=== PATIENT | male | born 1970 | race Caucasian/White ===

== ENCOUNTER 2022-08-05 08:03 | Outpatient (REF) | payer BC, SELFPAY ==
[2022-08-05 11:30] LABS: MANUAL DIFF FLAG NO
[2022-08-05 11:31] LABS: Basophils Percent Auto 0.5 % (0-2); Eosinophils Absolute Auto 0.1 X10*3/uL (0.0-0.4); Eosinophils Percent Auto 1.9 % (0-4); Hematocrit 44.8 % (42.0-52.0); Hemoglobin 15.1 g/dl (14.0-18.0); Imm Gran Abs Auto 0.02 X10*3/uL (0.00-0.03); Imm Gran Pct Auto 0.3 % (0.0-0.4); Lymphocytes Absolute Auto 2.6 X10*3/uL (1.2-4.9); Lymphocytes Percent Auto 34.6 % (20-40); Mean Corpuscular HGB Conc 33.7 g/dl (31.0-36.0); Mean Corpuscular Hemoglobin 28.2 pg (27.0-33.0); Mean Corpuscular Volume 83.6 fL (80.0-98.0); Mean Platelet Volume 9.3 fL (9.4-12.4); Monocytes Absolute Auto 0.7 X10*3/uL (0.1-1.2); Neutrophils Percent Auto 53.7 % (45-73); Platelet Count 165 X10*3/uL (160-400); Red Blood Count 5.36 X10*6/uL (4.60-5.80); Red Cell Distribution Width 13.2 % (11.0-16.0); White Blood Count 7.5 X10*3/uL (4.8-10.8)
[2022-08-05 13:00] LABS: Alanine Aminotransferase 33 U/L (0-40); Albumin Level 3.9 g/dL (3.5-5.0); Alkaline Phosphatase 59 U/L (39-117); Anion Gap 10 (12-20); Aspartate Amino Transferase 23 U/L (5-37); Bilirubin Total 1.3 mg/dL (0.0-1.0); Blood Urea Nitrogen 19 mg/dL (9-16); Calcium 8.9 mg/dL (8.4-10.2); Carbon Dioxide 28 mmol/L (22-29); Chloride 106 mmol/L (96-108); Cholesterol 196 mg/dL; Estimated Glomerular Filt Rate > 60; Glucose Random 82 mg/dL (60-115); HDL Cholesterol 51 mg/dL; LDL Cholesterol Calculated 130 mg/dl; Potassium 4.7 mmol/L (3.3-5.1); Sodium 139 mmol/L (135-145); Total Protein 6.3 g/dL (6.5-8.0); Triglycerides 79 mg/dL
[2022-08-05 13:05] LABS: Prostate Specific Antigen 0.85 ng/mL (<0.05-4.0); Thyroid Stimulating Hormone 3.87 uIU/mL (0.32-4.0); Vitamin D 25-OH Total 23.2 ng/mL (>30)
[2022-08-13 11:59] LABS: Testosterone, Total 438 ng/dL (250-1100)
== END 2022-08-05 08:04 | disposition home or self-care (01) ==
LOC: HO.MANLDS 08:03
PROVIDERS: Visit Provider Internal Medicine
DX: Z00.00 Encounter for general adult medical examination without abnormal findings (principal); Z12.5 Encounter for screening for malignant neoplasm of prostate; R53.83 Other fatigue
CPT/HCPCS: 36415; 80053; 80061; 82306; 84153; 84403; 84443; 85025

== ENCOUNTER 2023-08-30 08:08 | Outpatient (REF) | payer BC, SELFPAY ==
[2023-08-30 12:58] LABS: MANUAL DIFF FLAG NO
[2023-08-30 13:05] LABS: Basophils Absolute Auto 0.1 X10*3/uL (0.0-0.2); Basophils Percent Auto 0.7 % (0-2); Eosinophils Absolute Auto 0.1 X10*3/uL (0.0-0.4); Eosinophils Percent Auto 1.5 % (0-4); Hematocrit 45.1 % (42.0-52.0); Hemoglobin 15.2 g/dl (14.0-18.0); Imm Gran Abs Auto 0.03 X10*3/uL (0.00-0.03); Imm Gran Pct Auto 0.4 % (0.0-0.4); Lymphocytes Absolute Auto 2.2 X10*3/uL (1.2-4.9); Lymphocytes Percent Auto 30.3 % (20-40); Mean Corpuscular HGB Conc 33.7 g/dl (31.0-36.0); Mean Corpuscular Hemoglobin 28.7 pg (27.0-33.0); Mean Corpuscular Volume 85.3 fL (80.0-98.0); Mean Platelet Volume 9.9 fL (9.4-12.4); Monocytes Absolute Auto 0.7 X10*3/uL (0.1-1.2); Monocytes Percent Auto 9.2 % (2-11); Neutrophils Absolute Auto 4.1 x10*3/uL (2.0-8.3); Neutrophils Percent Auto 57.9 % (45-73); Platelet Count 213 X10*3/uL (160-400); Red Blood Count 5.29 X10*6/uL (4.60-5.80); Red Cell Distribution Width 13.3 % (11.0-16.0); White Blood Count 7.1 X10*3/uL (4.8-10.8)
[2023-08-30 13:38] LABS: Alanine Aminotransferase 28 U/L (0-40); Alkaline Phosphatase 60 U/L (39-117); Anion Gap 13 (12-20); Aspartate Amino Transferase 22 U/L (5-37); Bilirubin Total 0.7 mg/dL (0.0-1.0); Blood Urea Nitrogen 16 mg/dL (9-16); C Reactive Protein 0.45 mg/dL (< or = 0.50); Calcium 9.1 mg/dL (8.4-10.2); Carbon Dioxide 26 mmol/L (22-29); Chloride 106 mmol/L (96-108); Cholesterol 179 mg/dL (<200); Estimated Glomerular Filt Rate > 60; Glucose Random 77 mg/dL (60-115); HDL Cholesterol 55 mg/dL (>40); LDL Cholesterol Calculated 110 mg/dL (<100); Potassium 4.5 mmol/L (3.3-5.1); Sodium 140 mmol/L (135-145); Total Protein 6.9 g/dL (6.5-8.0); Triglycerides 72 mg/dL (<150)
[2023-08-30 13:51] LABS: Prostate Specific Antigen 0.88 ng/mL (<0.05-4.0)
== END 2023-08-30 08:09 | disposition home or self-care (01) ==
LOC: HO.MANLDS 08:08
PROVIDERS: Visit Provider Internal Medicine
DX: Z12.5 Encounter for screening for malignant neoplasm of prostate (principal); Z13.6 Encounter for screening for cardiovascular disorders; Z82.49 Family history of ischemic heart disease and other diseases of the circulatory system
CPT/HCPCS: 36415; 80053; 80061; 84153; 85025; 86140

== ENCOUNTER 2025-01-12 16:54 | Emergency (ER) | payer OTHER, BC, SELFPAY ==
--- NOTE | 2025-01-12 16:56 | ED_ITS ---
HPI - General Adult General Chief complaint: Wound/Laceration Stated complaint: right hand, fifth digit laceration Time Seen by Provider: 01/12/25 18:10 Source: patient, RN notes reviewed and old records reviewed Mode of arrival: ambulatory Limitations: no limitations History of Present Illness ED Provider: Naif [facility] narrative: Patient is a 54-year-old right-hand dominant male presenting to the emergency department with lacerations to right 4th and 5th fingers sustained while he was attempting to catch the watermelon that he was cutting from rolling away while the knife was in the watermelon. He denies any decreased range of motion. Complains of some numbness to 5th finger. Unsure last Tdap. Denies any other injuries. MD complaint: Finger lacerations Related Data Allergies Allergy/AdvReac Type Severity Reaction Status Date / Time No Known Allergies Allergy Verified 01/12/25 17:15 Review of Systems 2 Review of Systems: As per HPI. Yes all other systems are reviewed and are negative Constitutional: Constitutional: Reports as per HPI Physical Exam ED Vital Signs: Vital Signs - 24 hr 01/12/25 17:14 Temperature 98 F Pulse Rate 66 Respiratory Rate 18 Blood Pressure 133/74 Pulse Oximetry 98 Oxygen Delivery Method Room Air BMI result Body Mass Index 30.5 Vital signs have been reviewed and appear to be correct. Blood pressure normal. Heart rate normal. Respiratory rate normal. Temperature normal. Oxygen saturation normal. Const General: cooperative, healthy appearing and no acute distress Orientation/consciousness: oriented to person, oriented to place, oriented to time and patient oriented x3 Limitations: no limitations HENMT Head: Yes normocephalic and Yes atraumatic Ears: external ears normal General nose exam: Normal external nose present Face and sinus: Yes face symmetric Mouth: oropharynx normal and moist mucous membranes Throat: Yes uvula midline Eyes Pupils: Equal, round and reactive pupils present Neck Neck: Yes normal visual inspection and Yes supple Resp Effort & Inspection: normal respiratory effort and able to speak in complete sentences Auscultation: clear to auscultation bilaterally Cardio Rate: regular rate Rhythm: regular rhythm Heart sounds: S1 normal heart sound present and S2 normal heart sound present GI Palpation (GI): Soft to palpation and nontender Auscultation: normoactive bowel sounds General: Yes no CVA tenderness Back/Spine/Pelvis Back: no CVA tenderness Skin General skin exam: elasticity normal and turgor normal Neuro General: oriented to person, oriented to place, oriented to time, patient oriented x3, moves all extremities, no focal motor deficits and CN's II-XI intact bilaterally Cranial nerves: Yes Equal, round and reactive pupils present Cognition (Neuro): normal cognition Extrem General: Yes full ROM, Yes no pedal edema and Yes no calf tenderness Right upper extremity: Extremity exam: right hand Details: neurosensory exam normal (decreased sensation to 5th finger) and laceration (liner lacerations to 4th and 5th fingers) 5th digit palmar aspect proximal Details: linear Hand/finger images: 2 1. 1.5 cm lac 2. 1cm lac Psych Mental Status: mental status grossly normal Affect: normal affect Thought process: Normal thought process present Course Course Course Narrative: This is an RME performed by Cara Alcantar CNP: Additional HPI, ROS, PE not included below will be deferred to primary provider. Patient is a 54-year-old male who presents emergency department for evaluation of a laceration to the right hand 4th and 5th digit, palpar aspect, adccidental from a kitchen knofe while cutting a melon. Unaware of date of last tetanus vaccination Plan: Placed in waiting room pending bed availability for wound repair, will require suture Procedures Laceration Laceration 1: Site: hand (4th finger) Side (If applicable): right Size (cm): 1 Description: linear Depth: simple, single layer Local Anesthetic: lidocaine 1% Amount of anesthesia used (mL): 2 Pre-repair: wound explored, irrigated extensively and deep structures intact Skin layer closed with: other (prolene) Size (cm): 5-0 Number of sutures: 4 Technique: simple, interrupted Laceration 2: Site: hand (5th finger) Side (If applicable): right Size (cm): 1.5 Description: linear Depth: simple, single layer Local Anesthetic: lidocaine 1% Amount of anesthesia used (mL): 3 Pre-repair: wound explored, irrigated extensively and deep structures intact Skin layer closed with: other (prolene) Size (cm): 5-0 Number of sutures: 6 Technique: simple, interrupted Medical Decision Making Medical Decision Making MDM Narrative: Patient is a 54-year-old right-hand dominant male presenting to the emergency department with lacerations to right 4th and 5th fingers sustained while he was attempting to catch the watermelon that he was cutting from rolling away while the knife was in the watermelon. On exam patient is awake, A+Ox3, VS WNL, afebrile, normal neurological exam without focal deficits, physical exam findings as above. Given reported symptoms and physical exam findings, initial differential includes but is not limited to finger lacerations. No evidence of tendon injury on exam. Decreased sensation to 5th finger. Lacerations repaired as procedure note, patient tolerated well, no complications. Tdap updated today's visit. Wound care instructions and return precautions discussed with patient at bedside. Will give referral to Dr. Pulido if decreased sensation to 5th finger persist. Patient verbalized understanding of and agreement with plan. Differential Diagnosis Differential Diagnoses: The differential diagnosis associated with the presentation includes As per [facility] Admission/Observation Consideration of admission/observation: Escalation of care including admission/observation considered Patient would have been admitted to the hospital had their clinical presentation warranted hospital admission. External Record Review External record reviewed: Inpatient record, Office record and Outpatient record Discharge Plan Discharge Clinical Impression: Laceration of finger of right hand Qualifiers: Encounter type: initial encounter Finger: ring finger Damage to nail status: w ithout damage Foreign body presence: without foreign body Qualified Code(s): S 61.214A - Laceration without foreign body of right ring finger without damage to nail, initial encounter Patient Disposition: Home, Self-Care Instructions: Finger Laceration (ED), Laceration (DC), Care For Your Stitches (DC), Stitches Removal (ED) Additional Instructions: You have been evaluated in the emergency department today for a laceration to your fingers. Your lacerations were repaired in the emergency department with 10 total sutures. Please keep the area surrounding the lacerations clean and dry and keep dressing in place for the next 24 hours. After that please change the dressing and assess the wound daily. Do not submerge the wounds in water until the stitches have been removed and the wounds have fully healed (no washing dishes, swimming, hot tubs, etc. and ESPECIALLY no outdoor water). Keep the area out of direct sunlight for the next 6 months to help prevent scarring. You should have the sutures removed in 7-10 days. If you develop fever, redness, swelling at the site of your laceration, or thick yellow drainage please come back to the ER for a wound check. Your Tdap (tetanus) vaccine was updated at today's visit. Follow up with Dr. Pulido if the numbness to your 5th finger persists. Referrals: Yamileth Pulido MD [Physician, Hand Surgery] Referral Note: 4th and 5th finger lacerations Print Language: Indonesian
[2025-01-12 17:14] VITALS: BP 133/74; PULSE 66; RESP 18; TEMP 36.6; O2SAT 98; BMI 30.5
[2025-01-12] MEDS: Lidocaine HCl 1 % MPF 5 ML VIAL INFILTRATI (18:52)
[2025-01-12] MEDS: Diphth,Pertus(ACell),Tet Adult 0.5 ML SYRINGE IM (18:52)
[2025-01-12 18:59] VITALS: BP 133/74; PULSE 66; RESP 18; TEMP 36.6; O2SAT 98
== END 2025-01-12 18:59 | disposition home or self-care (01) ==
PROVIDERS: Emergency Provider Emergency Medicine; PCP Internal Medicine
DX: S61.214A Laceration without foreign body of right ring finger without damage to nail, initial encounter (principal); S61.218A Laceration without foreign body of other finger without damage to nail, initial encounter; W26.0XXA Contact with knife, initial encounter; Y93.9 Activity, unspecified; Y92.9 Unspecified place or not applicable; Y99.9 Unspecified external cause status
CPT/HCPCS: 12001; 90471; 90715; 99282; 99284; J2003

== ENCOUNTER 2025-01-17 08:48 | Outpatient (REF) | payer OTHER, BC, SELFPAY ==
--- OUTSIDE RECORDS SUMMARY | 2021-01-14 20:00 | XMS_ITS | Continuity of Care Document ---
Author Organization [facility] Address [address] [place] [phone] Phone Care Team Providers Care Cyber Security Systems Engineer Name Role Phone Liebetreu OD, Kiko Unavailable Unavailable Allergies, Adverse Reactions, Alerts Substance Reaction Status Criticality No Known Allergies Active No Inform ation Advance Directives Directive Yes / No Effective Date File Name No Information Encounters Encounter Description Practice Location Reason(s) For Visit Diagnoses Date Provider Providers Copied on Encounter [facility], [address] [place] [address], [id number] , [place] tel: [phone] [place] [address] [facility] Ocular hypertension, bilateral 1 Liebetreu Kiko. [address] [place], [place], [address], [place]. tel:[phone] [facility], [address] [place] [address], [id number] , [place] tel: [phone] [facility] Location Sixth [abducent] nerve palsy, right eyeDiplopiaOcular pain, right eyeSixth [abducent] nerve palsy, left eyeOcular hypertension, bilateralDrusen of optic disc, bilateralHypertensiv e retinopathy, bilateralHeadache, unspecifiedType 2 diabetes mellitus without complications 1 [facility]. [address] [place] [address], [id number], [place]. tel:[phone] [facility], [address] [place] [address], [id number] , [place] tel: [phone] [facility] Location Drusen of optic disc, bilateralType 2 diabetes mellitus without complicationsOcular pain, right eyeHypertensive retinopathy, bilateralSixth [abducent] nerve palsy, right eyeHeadache, unspecifiedDiplopia 1 [facility]. [address] [place] [address], [facility], . tel:[phone] [facility], [address] [place] [address], [id number] , tel: [phone] [facility] Location Type 2 diabetes mellitus without complicationsType 2 diabetes mellitus with mild nonproliferative diabetic retinopathy without macular edema, bilateralDiplopiaDru sen of optic disc, bilateralHypertensiv e retinopathy, bilateralOcular pain, right eyeHeadache, unspecifiedSixth [abducent] nerve palsy, right eye 1 [facility]. [address] [place] [address], [facility], . tel:[phone] [facility], [address] [place] [address], [id number] , tel: [phone] [facility] Location Type 2 diabetes mellitus with mild nonproliferative diabetic retinopathy without macular edema, bilateralSixth [abducent] nerve palsy, right eye Dec- 0 [facility]. [address] [place] [address], [facility], . tel:[phone] [facility], [address] [place] [address], [id number] , tel: [phone] [facility] Type 2 diabetes mellitus with mild nonproliferative diabetic retinopathy without macular edema, bilateral Oct-1 0-201 9 [facility]. [address] [place] [address], [facility], . tel:[phone] Family History Family Member Type Diagnosis Age At Onset Close relative Problem (finding) No Significant Family History Payers Payer name Insurance type Covered green party ID Authoriza tion(s) No Information Social History Type Description Quantity Date Captured Comments Alcohol Use Details Unknown Caffeine Use Details Unknown Tobacco Use Status Former smoker Smoking Status Former smoker Non-Smoking Tobacco Use Details : No Details Available : No Details Available Sex Male Chief Complaint And Reason For Visit No Information Reason For Referral Reason For Referral No Information History Of Present Illness Encounter Date Complaint History Of Prese nt Illness No Information Functional Status Date Functional Assessmen t No Information Instructions Date Instruction Additional Infor rosalia Impression/Plan Related to [place] revealed increased intraocular pressure. Impression/Plan Related to Diagn osis Description: Bilateral hypertensive retinopathy \nDiagnosis Code: 362.11 Impression/Plan Related to Diagn osis Description: Drusen of optic disc, bilateral \nDiagnosis Code: 377.21 Impression/Plan Related to Diagn osis Description: Controlled diabetes mellitus type II without complication \nDiagnosis Code: 250.00 Impression/Plan Related to Diagn osis Description: Headache, unspecified \nDiagnosis Code: 784.0 Impression/Plan Related to Diagn osis Description: Ocular pain, right eye \nDiagnosis Code: 379.91 Impression/Plan Related to Diagn osis Description: Ocular hypertension, bilateral \nDiagnosis Code: 365.04 Impression/Plan Related to Diagn osis Description: Sixth nerve palsy of left eye \nDiagnosis Code: 378.54 Impression/Plan Related to Diagn osis Description: Sixth nerve palsy of right eye \nDiagnosis Code: 378.54 Impression/Plan Related to Diagn osis Description: Diplopia \nDiagnosis Code: 368.2 Impression/Plan Related to Diagn osis Description: Bilateral hypertensive retinopathy \nDiagnosis Code: 362.11 Impression/Plan Related to Diagn osis Description: Drusen of optic disc, bilateral \nDiagnosis Code: 377.21 Impression/Plan Related to Diagn osis Description: Controlled diabetes mellitus type II without complication \nDiagnosis Code: 250.00 Impression/Plan Related to Diagn osis Description: Headache, unspecified \nDiagnosis Code: 784.0 Impression/Plan Related to Diagn osis Description: Ocular pain, right eye \nDiagnosis Code: 379.91 Impression/Plan Related to Diagn osis Description: Sixth nerve palsy of right eye \nDiagnosis Code: 378.54 Impression/Plan Related to Diagn osis Description: Diplopia \nDiagnosis Code: 368.2 Impression/Plan Related to Diagn osis Description: Bilateral hypertensive retinopathy \nDiagnosis Code: 362.11 Impression/Plan Related to Diagn osis Description: Drusen of optic disc, bilateral \nDiagnosis Code: 377.21 Impression/Plan Related to Diagn osis Description: Controlled diabetes mellitus type II without complication \nDiagnosis Code: 250.00 Impression/Plan Related to Diagn osis Description: Headache, unspecified \nDiagnosis Code: 784.0 Impression/Plan Related to Diagn osis Description: Ocular pain, right eye \nDiagnosis Code: 379.91 Impression/Plan Related to Diagn osis Description: Controlled diabetes mellitus with mild nonproliferative retinopathy of both eyes, without long-term current use of insulin \nDiagnosis Code: 250.50 Impression/Plan Related to Diagn osis Description: Diplopia \nDiagnosis Code: 368.2 Impression/Plan Related to Diagn osis Description: Palsy of right sixth cranial nerve on examination \nDiagnosis Code: 378.54 Impression/Plan Related to Diagn osis Description: Controlled diabetes mellitus with mild nonproliferative retinopathy of both eyes, without long-term current use of insulin \nDiagnosis Code: 250.50 Impression/Plan Related to Diagn osis Description: Palsy of right sixth cranial nerve on examination \nDiagnosis Code: 378.54 Impression/Plan Related to Diagn osis Description: Controlled diabetes mellitus with mild nonproliferative retinopathy of both eyes, without long-term current use of insulin \nDiagnosis Code: 250.50 Assessments Type Assessment Date No Information Patient Care Teams Name Effective Dates (start - stop) Status Members No Information
--- NOTE | ~2025-01-17 | XR_ITS ---
EXAMINATION: XR HAND, RIGHT CLINICAL INFORMATION: M79.641 - Pain in right hand COMPARISON: None available. TECHNIQUE: PA, lateral, and oblique views of the right hand. FINDINGS: No fracture, dislocation, or suspicious bone lesion. No periarticular osteopenia or erosions. Joint spaces are preserved. There is normal alignment. There are normal soft tissues. XR/XR hand RT min 3V IMPRESSION: Normal right hand. Electronically signed by: Dallin Gonzalez MD 01/17/2025 02:06 PM EDT
--- OUTSIDE RECORDS SUMMARY | 2025-01-17 09:01 | XMS_ITS | Continuity of Care Document ---
Author Name [facility] Organization [facility] Care Team Providers Care Handbag Frames Inspector Name Role Phone [facility] Unavailable Unavailable Problems Combined list of problems from Department of Defense and Veterans Affairs facilities. It does not include entries that were removed or entered in error. Problem Status Onset Date Problem Type Date of Resolution Comme nts Source visit for: services physical Inactive 03/18/2012 Condition DoD Immunizations Combined list of available immunizations from the Department of Defense and Veterans Affairs facilities. Immunization Series Date Given Administered By Site Reaction Lot Number CVX Code Drug Care Analyst Status Comments Source influenza virus vaccine, inactivated 2021 [id number] Seqirus complet ed influenza virus vaccine, inactivat ed 06/20/21 Given Ambulat ory Pharmac y COVID Vaccine Moderna 2020 [id number] complet ed COVID Vaccine Moderna 10/07/20 Given Ambulat ory Pharmac y COVID Vaccine Moderna 2020 [id number] 207 complet ed COVID Vaccine Moderna 09/09/20 Given Ambulat ory Pharmac y influenza, injectable, quadrivalent- pf 2019 [id number] 150 Seqirus complet ed influenza , injectabl e, quadrival ent-pf 04/25/20 Given Ambulat ory Pharmac y influenza, injectable, quadrivalent- pf 2018 [id number] 150 Seqirus complet ed influenza , injectabl e, quadrival ent-pf 03/17/19 Given Ambulat ory Pharmac y influenza, injectable, quadrivalent 2017 [id number] Seqirus complet ed influenza , injectabl e, quadrival ent 05/12/18 Given Ambulat ory Pharmac y influenza, injectable, quadrivalent, contains preservative 15 2017 [id number] Seqirus (SEQ) comple t ed influenza , injectabl e, quadrival ent, contains preservat stephon DoD measles/mumps /rubella virus vaccine 2017 [id number] Merck & Company Inc complet ed measles/m umps/rube lla virus vaccine 6/2/18 Given Ambulat ory Pharmac y measles, mumps and rubella virus vaccine 1 2017 [id number] Merck (MSD) complet ed measles, mumps and rubella virus vaccine DoD typhoid Vi capsular polysaccharid e vac 2017 [id number] sanofi pasteur complet ed typhoid Vi capsular polysacch aride vac 10/14/17 Given Ambulat ory Pharmac y measles/mumps /rubella virus vaccine 2017 [id number] Merck & [employer] Inc complet ed measles/m umps/rube lla virus vaccine 10/14/17 Given Ambulat ory Pharmac y measles, mumps and rubella virus vaccine 1 2017 [id number] 03 Merck (MSD) complet ed measles, mumps and rubella virus vaccine DoD typhoid Vi capsular polysaccharid e vaccine 5 2017 [id number] Sanofi Pasteur ([facility]) complet ed typhoid Vi capsular polysacch aride vaccine DoD measles virus vaccine 0 2017 05 () Not Given measles virus vaccine DoD rubella virus vaccine 0 2017 06 () Not Given rubella virus vaccine DoD varicella virus vaccine 0 2017 21 () Not Given varicella virus vaccine DoD Influenza, inj, MDCK, quadrivalent- pf 2016 [id number] Seqirus complet ed Influenza , inj, MDCK, quadrival ent-pf 05/13/17 Given Ambulat ory Pharmac y Influenza, injectable, Madin Gisela Canine Kidney, preservative free, quadrivalent 14 2016 [id number] 171 Seqirus (SEQ) comple t ed Influenza , injectabl e, Madin Gisela Canine Kidney, preservat stephon free, quadrival ent DoD tuberculin purified protein derivative 2016 [id number] [facility] complet ed tuberculi n purified protein derivativ e 08/13/16 Given Ambulat ory Pharmac y influenza, seasonal, injectable-pf 2016 [id number] 140 Seqirus complet ed influenza , seasonal, injectabl e-pf 08/13/16 Given Ambulat ory Pharmac y Influenza, seasonal, injectable, preservative free 13 2016 [id number] 140 Seqirus (SEQ) comple t ed Influenza , seasonal, injectabl e, preservat stephon free DoD typhoid Vi capsular polysaccharid e vac 2015 [id number] 101 sanofi pasteur complet ed typhoid Vi capsular polysacch aride vac 09/04/15 Given Ambulat ory Pharmac y typhoid Vi capsular polysaccharid e vaccine 4 2015 [id number] 101 Sanofi Pasteur ([facility]) complet ed typhoid Vi capsular polysacch aride vaccine DoD influenza, live, intranasal,qu adrivalent 2015 [id number] 149 Medimmune Inc comple t ed influenza , live, intranasa l,quadriv alent 06/20/15 Given Ambulat ory Pharmac y influenza, live, intranasal, quadrivalent 12 2015 [id number] 149 MedImmMediaWorks, Inc. (MED) complet ed influenza , live, intranasa l, quadrival ent DoD Influenza, injectable, MDCK-pf 2013 [id number] 153 Novartis Bannermantica ls complet ed Influenza , injectabl e, MDCK-pf 03/15/14 Given Ambulat ory Pharmac y hepatitis A adult vaccine 2013 [id number] GlaxoSmithKli ne complet ed hepatitis A adult vaccine 03/15/14 Given Ambulat ory Pharmac y hepatitis A vaccine, adult dosage 2 2013 [id number] AuroraeReplacementsine (SKB) complet ed hepatitis A vaccine, adult dosage DoD Influenza, injectable, Madin Dawn Canine Kidney, preservative free 11 2013 [id number] 153 Novartis Bannermantica l [place]. (NOV) complet ed Influenza , injectabl e, Madin Gisela Canine Kidney, preservat stephon free DoD influenza, seasonal, injectable 2012 [id number] 141 CSL Behring complet ed influenza , seasonal, injectabl e 04/14/13 Given Ambulat ory Pharmac y Influenza, seasonal, injectable 0 2012 [id number] [id number] 141 CSA vida é feita de [employer]. (CSL) complet ed Influenza , seasonal, injectabl e DoD yellow fever vaccine 2012 [id number] 37 sanofi pasteur complet ed yellow fever vaccine 07/22/12 Given Ambulat ory Pharmac y yellow fever vaccine 2 2012 [id number] 37 Sanofi Pasteur ([facility]) complet ed yellow fever vaccine DoD influenza, seasonal, injectable 2012 [id number] 1A 141 CSL Behring complet ed influenza , seasonal, injectabl e 06/23/12 Given Ambulat ory Pharmac y hepatitis B adult vaccine 2012 [id number] 43 GlaxoSmithKli ne complet ed hepatitis B adult vaccine 06/23/12 Given Ambulat ory Pharmac y hepatitis B vaccine, adult dosage 3 2012 [id number] 43 SmithKline (SKB) complet ed hepatitis B vaccine, adult dosage DoD Influenza, seasonal, injectable 9 2012 [id number] 141 CS Book[employer] Inc. (CSL) complet ed Influenza , seasonal, injectabl e DoD tetanus, diphtheria, acellular pertu is 2011 [id number] 115 sanofi pasteur complet ed tetanus, diphtheri a, acellular pertussis 01/02/12 Given Ambulat ory Pharmac y tetanus toxoid, reduced diphtheria toxoid, and acellular pertu is vaccine, adsorbed 0 2011 [id number] 115 Sanofi Pasteur ([facility]) complet ed tetanus toxoid, reduced diphtheri a toxoid, and acellular pertussis vaccine, adsorbed DoD hepatitis B adult vaccine 2011 [id number] [id number] 43 GlaxoSmithKli ne complet ed hepatitis B adult vaccine 10/16/11 Given Ambulat ory Pharmac y hepatitis B vaccine, adult dosage 2 2011 [id number] [id number] 43 SmithKline (SKB) complet ed hepatitis B vaccine, adult dosage DoD hepatitis B adult vaccine 2011 [id number] [id number] 43 GlaxoSmithKli ne complet ed hepatitis B adult vaccine 07/26/11 Given Ambulat ory Pharmac y anthrax vaccine 2011 [id number] 24 Emergent Biosolutions complet ed anthrax vaccine 07/26/11 Given Ambulat ory Pharmac y typhoid Vi capsular polysaccharid e vac 2011 [id number] 101 sanofi pasteur complet ed typhoid Vi capsular polysacch aride vac 07/26/11 Given Ambulat ory Pharmac y anthrax vaccine 5 2011 [id number] 24 Emergent [employer] ([facility]) complet ed anthrax vaccine DoD hepatitis B vaccine, adult dosage 0 2011 [id number] [id number] 43 SmithKline (SKB) complet ed hepatitis B vaccine, adult dosage DoD typhoid Vi capsular polysaccharid e vaccine 3 2011 [id number] 101 Sanofi Pasteur ([facility]) complet ed typhoid Vi capsular polysacch aride vaccine DoD influenza, seasonal, injectable 2010 [id number] 141 sanofi pasteur complet ed influenza , seasonal, injectabl e 05/15/11 Given Ambulat ory Pharmac y Influenza, seasonal, injectable 8 2010 [id number] 141 Sanofi Pasteur ([facility]) complet ed Influenza , seasonal, injectabl e DoD influenza virus vaccine,split 2010 [id number] 15 sanofi pasteur complet ed influenza virus vaccine,s plit 10/23/10 Given Ambulat ory Pharmac y influenza virus vaccine, split virus (incl. purified surface antigen)-reti red CODE 1 2010 [id number] 15 Sanofi Pasteur ([facility]) complet ed influenza virus vaccine, split virus (incl. purified surface antigen)- retired CODE DoD influenza virus vaccine,split 2009 [id number] 15 CSL Behring complet ed influenza virus vaccine,s plit 10/08/09 Given Ambulat ory Pharmac y influenza virus vaccine, split virus (incl. purified surface antigen)-reti red CODE 1 2009 [id number] 15 CSL PollitoIngles[employer] Inc. (CSL) complet ed influenza virus vaccine, split virus (incl. purified surface antigen)- retired CODE DoD Novel influenza-H1N 1-09, injectable 2009 [id number] 127 Novartis Pharmaceutica complet ed Novel influenza -H4N2-66, injectabl e 07/18/09 Given Ambulat ory Pharmac y Novel influenza-H1N 1-09, injectable 1 2009 [id number] 1 127 Novartis Pharmaceutica l [place]. (NOV) complet ed Novel influenza -S7H5-42, injectabl e DoD influenza virus vaccine,split 2007 [id number] 15 sanofi pasteur complet ed influenza virus vaccine,s plit 05/17/08 Given Ambulat ory Pharmac y influenza virus vaccine, split virus (incl. purified surface antigen)-reti red CODE 1 2007 [id number] 15 Sanofi Pasteur ([facility]) complet ed influenza virus vaccine, split virus (incl. purified surface antigen)- retired CODE DoD influenza virus vaccine,split 2005 [id number] 15 sanofi pasteur complet ed influenza virus vaccine,s plit 07/16/05 Given Ambulat ory Pharmac y influenza virus vaccine, split virus (incl. purified surface antigen)-reti red CODE 1 2005 [id number] 15 Sanofi Pasteur ([facility]) complet ed influenza virus vaccine, split virus (incl. purified surface antigen)- retired CODE DoD anthrax vaccine 2003 [id number] 24 Emergent Biosolutions complet ed anthrax vaccine 03/27/04 Given Ambulat ory Pharmac y anthrax vaccine 5 2003 [id number] 24 Emergent [facility] ([facility]) complet ed anthrax vaccine DoD tuberculin purified protein derivative 2003 [id number] 96 sanofi pasteur complet ed tuberculi n purified protein derivativ e 09/13/03 Given Ambulat ory Pharmac y influenza virus vaccine, whole virus 2003 [id number] 16 [employer] complet ed influenza virus vaccine, whole virus 09/13/03 Given Ambulat ory Pharmac y typhoid Vi capsular polysaccharid e vac 2003 [id number] 101 sanofi pasteur complet ed typhoid Vi capsular polysacch aride vac 09/13/03 Given Ambulat ory Pharmac y anthrax vaccine 2003 [id number] 24 Emergent [employer] complet ed anthrax vaccine 09/13/03 Given Ambulat ory Pharmac y influenza virus vaccine, whole virus 0 2003 [id number] 16 [facility] complet ed influenza virus vaccine, whole virus DoD anthrax vaccine 4 2003 [id number] Emergent [facility] ([facility]) complet ed anthrax vaccine DoD typhoid Vi capsular polysaccharid e vaccine 0 2003 [id number] 101 Sanofi Pasteur ([facility]) complet ed typhoid Vi capsular polysacch aride vaccine DoD vaccinia (smallpox) vaccine 2002 [id number] 75 [employer] complet ed vaccinia (smallpox ) vaccine 08/13/02 Given Ambulat ory Pharmac y vaccinia (smallpox) vaccine 0 2002 [id number] 75 [facility] complet ed vaccinia (smallpox ) vaccine DoD anthrax vaccine 2002 [id number] 24 Emergent [employer] complet ed anthrax vaccine 07/13/02 Given Ambulat ory Pharmac y anthrax vaccine 3 2002 [id number] 24 Emergent [employer] ([facility]) complet ed anthrax vaccine DoD yellow fever vaccine 2002 [id number] 37 sanofi pasteur complet ed yellow fever vaccine 06/22/02 Given Ambulat ory Pharmac y yellow fever vaccine 0 2002 [id number] 37 Sanofi Pasteur ([facility]) complet ed yellow fever vaccine DoD anthrax vaccine 2001 [id number] 24 [employer] complet ed anthrax vaccine 06/01/02 Given Ambulat ory Pharmac y anthrax vaccine 2 2001 [id number] 24 Emergent [employer] ([facility]) complet ed anthrax vaccine DoD anthrax vaccine 2001 [id number] 24 [employer] complet ed anthrax vaccine 05/18/02 Given Ambulat ory Pharmac y anthrax vaccine 1 2001 [id number] 24 [employer] ([facility]) complet ed anthrax vaccine DoD tuberculin purified protein derivative 2001 [id number] 96 sanofi pasteur complet ed tuberculi n purified protein derivativ e 04/12/02 Given Ambulat ory Pharmac y influenza virus vaccine, whole virus 2001 [id number] 16 sanofi pasteur complet ed influenza virus vaccine, whole virus 04/12/02 Given Ambulat ory Pharmac y influenza virus vaccine, whole virus 0 2001 [id number] 16 Sanofi Pasteur ([facility]) complet ed influenza virus vaccine, whole virus DoD hepatitis A adult vaccine 2001 [id number] Merck & Company Inc complet ed hepatitis A adult vaccine 02/02/02 Given Ambulat ory Pharmac y hepatitis A vaccine, adult dosage 2 2001 [id number] 52 Merck (MSD) complet ed hepatitis A vaccine, adult dosage DoD poliovirus vaccine, inactivated 2001 [id number] 10 sanofi pasteur complet ed polioviru s vaccine, inactivat ed 10/13/01 Given Ambulat ory Pharmac y poliovirus vaccine, inactivated 0 2001 [id number] 10 Sanofi Pasteur ([facility]MC) complet ed polioviru s vaccine, inactivat ed DoD tetanus-dipht h toxoids (Td) adult/adol 2001 [id number] 09 sanofi pasteur complet ed tetanus-d iphth toxoids (Td) adult/ado l 08/18/01 Given Ambulat ory Pharmac y typhoid Vi capsular polysaccharid e vac 2001 [id number] 101 sanofi pasteur complet ed typhoid Vi capsular polysacch aride vac 08/18/01 Given Ambulat ory Pharmac y hepatitis A adult vaccine 2001 [id number] 52 Merck & Company Inc complet ed hepatitis A adult vaccine 08/18/01 Given Ambulat ory Pharmac y tetanus and diphtheria toxoids, adsorbed, preservative free, for adult use (2 Lf of tetanus toxoid and 2 Lf of diphtheria toxoid) 0 2001 [id number] 09 Sanofi Pasteur (PMC) complet ed tetanus and diphtheri a toxoids, adsorbed, preservat stephon free, for adult use (2 Lf of tetanus toxoid and 2 Lf of diphtheri a toxoid) DoD hepatitis A vaccine, adult dosage 1 2001 [id number] 52 Merck (MSD) complet ed hepatitis A vaccine, adult dosage DoD typhoid Vi capsular polysaccharid e vaccine 0 2001 [id number] 101 Sanofi Pasteur ([facility]) complet ed typhoid Vi capsular polysacch aride vaccine DoD tuberculin purified protein derivative 2000 [id number] 96 sanofi pasteur complet ed tuberculi n purified protein derivativ e 04/14/01 Given Ambulat ory Pharmac y influenza virus vaccine, whole virus 2000 [id number] 16 sanofi pasteur complet ed influenza virus vaccine, whole virus 04/14/01 Given Ambulat ory Pharmac y influenza virus vaccine, whole virus 0 2000 [id number] 16 Sanofi Pasteur ([facility]) complet ed influenza virus vaccine, whole virus DoD measles, mumps and rubella virus vaccine 0 1990 03 () Not Given measles, mumps and rubella virus vaccine DoD Results Combined list of recent chemistry, hematology and other laboratory results from Department of Defense and Veterans Affairs, ranging from 15 months to all on record, depending upon the facility. Order Name Results Value Reference Range Date Interpretation Specimen Comments Source Infectiou s Disease HIV-1/O/2 Non-Reac tive 1 (08/25/23 1:10 PM) 08/24 N Interpretiv e Data: INTERPRETAT ION: This method is a screening procedure for the detection of HIV p24 Antigen and Antibodies to HIV-1, including Group O, and/or HIV-2. NON-REACTIV E: HIV-1 antigen and HIV-1 / HIV-2 antibodies were not detected. No laboratory evidence of HIV infection. A negative test result does not exclude the possibility of exposure to or infection with HIV. HIV antibodies and/or p24 antigen may be undetectabl e in some stages of the infection and in some clinical conditions. If acute HIV infection is suspected, consider submitting another specimen to a reference laboratory for HIV-1 RNA. SCREEN REACTIVE - CONFIRMATIO N TO FOLLOW: Possible presence of HIV-1antibo dies, HIV-2 antibodies and/or HIV-1 p24 antigen. Specimen will reflex to the confirmatio n testing that fulfills the Center for Disease Control and Prevention' s HIV diagnostic algorithm. Refer to [facility] Lab Guide for additional information : [email or web address] x Testing performed by [facility] [address] [employer] EPILAB Miscellan eous Sendouts Repository Sample Received (08/25/23 1:10 PM) 08/24 N [address] [facility] EPILAB Encounters Combined list of: 1) Encounters from Department of Veterans Affairs facilities going backup to the last 18 months, not all VA inpatient encounters are included; 2) Encounters from the Department of Defense facilities going backup to 280 months. Location Location Details Encounter Type Encounter Number Reason For Visit Attending Provider ADM Date DC Date Status Disposition Source Theater Facility OUTPATIENT [id number] 03/18 Released w/o Limitations [place] [address](AFN G 104 Med Sq-FM) OUTPATIENT [id number] Notes Entered by: PEREZ SANTIZO 10 Jul 2017 0948 ------- ------- ------- ------- -- PEREZ HANNA 07/10 Released w/o Limitations [facility] [place] [address](A FNG 104 Med Sq-FM) [place] [address](AFN G 104 Med Sq-FM) OUTPATIENT [id number] Notes Entered by: GUSTAVO ROSAS 07 Aug 2017 1208 ------- ------- ------- ------- -- PEREZ Denney 08/07 [facility] [place] [address](A FNG 104 Med Sq-FM) [place] [address](AFN G 104 Med Sq-FM) OUTPATIENT [id number] Notes Entered by: SARA TEJADA 12 Aug 2018 0908 ------- ------- ------- ------- -- NAHID Berman 08/12 [facility] [place] [address](A FNG 104 Med Sq-FM) [place] [address](AFN G 104 Med Sq-FM) OUTPATIENT [id number] Notes Entered by: PEREZ SANTIZO 30 Jul 2019 1249 ------- ------- ------- ------- -- PEREZ HANNA 07/30 [facility] Lim[facility] [place] [address](A FNG 104 Med Sq-FM) [place] [address](AFN G 104 Med Sq-FM) TELE CONSULT [id number] Notes Entered by: ANDREW BELTRAN 23 Sep 2019 1519 ------- ------- ------- ------- -- Civilia n Surgkarsten l RTD note MANOHAR BELTRAN [facility] [place] [place] [address](A FNG 104 Med Sq-FM) [place] [address](AFN G 104 Med Sq-FM) OUTPATIENT [id number] Notes Entered by: PEREZ SANTIZO 06 Dec 2019 1019 ------- ------- ------- ------- -- ION 1 PEREZ SANTIZO 12/05 Released w/o Limitations [facility] [place] [address](A FNG 104 Med Sq-FM) [place] [address](AFN G 104 Med Sq-FM) OUTPATIENT [id number] Notes Entered by: PEREZ SANTIZO 03 Mar 2020 1627 ------- ------- ------- ------- -- ION2/S PEREZ ARREAGA 03/03 [facility] Limitations [facility] [place] [address](A FNG 104 Med Sq-FM) [place] [address](AFN G 104 Med Sq-FM) OUTPATIENT [id number] Notes Entered by: SARA TEJADA R 15 Jul 2020 0908 ------- ------- ------- ------- -- NAHID FRAGA R 07/15 [facility] Lim[facility] [place] [place] [address](A FNG 104 Med Sq-FM) [place] [address](AFN G 104 Med Sq-FM) OUTPATIENT [id number] DARLYNPEREZ 08/13 Released w/o Limitations [facility] [place] [address](A FNG 104 Med Sq-FM) [place] [address](AFN G 104 Med Sq-FM) OUTPATIENT [id number] Notes Entered by: PEREZ SANTIZO 07 Oct 2020 1527 ------- ------- ------- ------- -- ION3 PEREZ SANTIZO 10/07 Released w/o Limitations [facility] [place] [address](A FNG 104 Med Sq-FM) [place] [address](AFN G 104 Med Sq-FM) OUTPATIENT [id number] Notes Entered by: BECCA TOUSSAINT 18 Aug 2021 1259 ------- ------- ------- ------- -- Annual Audiogr am / PHAQ PEREZ SANTIZO 08/18 Released w/o Limitations [facility] [address](A FNG 104 Med Sq-FM) Procedures Combined list of: 1) Procedures from Department of Veterans Affairs facilities going back up to thelast 18 months, not all [place] non-surgical procedures are included; 2) All procedures from the Department of Defense facilities. Procedure Procedure Type Code Date Perfomer Comments Sourc e No data available for this section Ambulato ry Pharmacy OTHER SURGICAL EXTRACTION OF TOOTH 07/27/1993 [facility] Social History Combined list of available smoking, tobacco, and other social history from Department of Defense and Veterans Affairs facilities. Social History Type Response Date Comment Sourc e This section is an empty social history section. [facility] Assessment and Plan Combined list of future care activities from Department of Defense and Veterans Affairs facilities (e.g., assessment and plan notes, appointments, orders, and referrals). Additional future care activities may be listed in the Plan of Care section. Result Assessment and Plan Date Source Assessment and Plan No data available for this section 01/17/2025 Ambulatory Pharmacy Functional Status Combined list of recent functional and cognitive assessments recorded at Department of Defense and [facility] Affairs ([place] Functional Lander Measurement (FIM) Scale: 1 = Total Assistance (Subject = 0% +), 2 = Maximal Assistance (Subject = 25% +), 3 = Moderate Assistance (Subject = 50% +), 4 = Minimal Assistance (Subject = 75% +), 5 = Supervision, 6 = Modified Lander (Device), 7 = Complete Lander (Timely, Safely). Assessment Date/Time Source Assessment Type Assessment Skill Assessment Score Assessment Details No data available for this section
== END 2025-01-17 08:49 | disposition home or self-care (01) ==
LOC: HO.HOSX 08:48
DX: S61.214A Laceration without foreign body of right ring finger without damage to nail, initial encounter (principal)
CPT/HCPCS: 73130; 99202

== ENCOUNTER 2025-01-17 13:38 | Outpatient (AMB) | payer OTHER, BC, SELFPAY ==
--- NOTE | 2025-01-17 13:58 | A.OFFVIS_ITS ---
Vital Signs 01/17/25 13:59 Height 6 ft Weight 225 lb BMI 30.5 Handedness Right Intake Visit Reasons: ED/FC: RT RF & SF laceration, DOI 01/12/25 Intake Note: Toney is a 54 year old right hand dominant male, new patient, who presents today for evaluation of a lacerations to his right ring and right small finger. Patient presented to [facility] [place] ED on 01/12/25 reporting he was attempting to catch the watermelon he was cutting, from rolling away, while the knife was still in the watermelon. At the ED her had sutures placed. Reports numbness at the distal end of his right hand 5th digit. Expresses discomfort, 1-2/10 on pain scale. Unable to bend his fingers due to injury. Allergies No Known Allergies Allergy (Verified 01/17/25 14:03) HPI HPI ED/FC: RT RF & SF laceration, DOI 01/12/25: Details: Toney is a 54 year old right hand dominant male, new patient, who presents today for evaluation of a lacerations to his right ring and right small finger. Patient presented to [facility] [place] ED on 01/12/25 reporting he was attempting to catch the watermelon he was cutting, from rolling away, while the knife was still in the watermelon. At the ED her had sutures placed. Reports numbness at the distal end of his right hand 5th digit, numbness is only on the dorsal aspect of the small finger. Expresses discomfort, 1-2/10 on pain scale. Unable to bend his fingers due to injury. [facility] Social History (Updated 01/17/25 @ 14:04 by JOAQUIM Maya) Alcohol intake: current Alcohol intake frequency: a few times a month Patient Tobacco Use Status: Never used Tobacco service: Yes Current occupational status: employed Current occupation: [employer] All systems reviewed & are unremarkable except as noted in HPI and below Physical Exam Vital Signs: BMI result Body Mass Index 30.5 Extrem Other: Patient is alert, oriented, and in no acute distress. Neuro: Patient reports diminished sensation to both the radial and ulnar dorsal aspect of the right small finger Sensation to the right small finger volar aspect full and intact Normal sensation of the tips of all other digits of the left hand at this time Vascular: Cap refill brisk Pain: No tenderness to palpation about laceration sites ROM: Patient is able to make a closed fist and extend all digits of the right hand fully Skin: No lacerations or abrasions. General: No ecchymosis, erythema, or evidence of infection. Psych: Appears grossly normal Affect normal Attitude cooperative Results Reviewed Results Reviewed: X-rays obtained in the office today and independently reviewed by me, Manfred Gutierrez PA-C, demonstrate no fracture or acute bony abnormality of the right hand. Assessment & Plan Assessment & Plan (1) Laceration of finger of right hand: Code(s): S61.219A - Laceration without foreign body of unspecified finger without damage to nail, initial encounter Category: Medical Qualifiers: Damage to nail status: without damage Encounter type: initial encounter Finger: ring finger Foreign body presence: without foreign body Qualified Code(s): S61.214A - Laceration without foreign body of right ring finger without damage to nail, initial encounter Plan 1. Laceration of right ring and small fingers Concern for potential nerve injury given laceration and diminished sensation Patient is educated about this injury Patient is educated about the typical treatment course At this time, patient will be referred to Dr. Pulido for assessment of the health of the nerves of the right small finger in 1 week Of note, the patient states that if the nerve is unable to be repaired if there is nerve damage, he is not particularly bothered by this and states that he feels this will not affect his baseline Follow-up in 1-[address] Pulido, anticipate suture removal at that time, sooner with any acute concerns Orders: Orders XR hand RT min 3V 01/17/25 M79.641 - Pain in right hand Coding Level of Care Code New Pt Level 3 (00039) Diagnoses Laceration of finger of right hand S61.214A Damage to nail status: without damage Encounter type: initial encounter Finger: ring finger Foreign body presence: without foreign body
[2025-01-17 13:59] VITALS: BMI 30.5
== END 2025-01-17 14:31 | disposition home or self-care (01) ==
LOC: HO.HOS 13:39
PROVIDERS: PCP Internal Medicine
DX: S61.214A Laceration without foreign body of right ring finger without damage to nail, initial encounter (principal)
CPT/HCPCS: 99203

== ENCOUNTER → 2025-01-17 13:43 | Outpatient (BNV) | payer OTHER, BC, SELFPAY | PROVIDERS: Visit Provider Radiology Diagnostic Radiology | DX: M79.641 Pain in right hand (principal) | CPT/HCPCS: 73130 ==

== ENCOUNTER 2025-02-11 15:36 | Outpatient (AMB) | payer OTHER, BC, SELFPAY ==
[2025-02-11 15:45] VITALS: BMI 30.5
--- NOTE | 2025-02-11 15:45 | A.OFFVIS_ITS ---
Vital Signs 02/11/25 15:45 Height 6 ft Weight 225 lb BMI 30.5 Intake Visit Reasons: OV-RT small finger nerve-follow up Intake Note: Edson is a 54 year old right hand dominant man who presents today for a follow up visit for his laceration of right ring and small fingers status post cutting injury, DOI: 01/12/25. Perlast visit with Charito Gutierrez PA-C the patient pr esented to [facility] [place] [facility] ED on 01/12/25 reporting he was attempting to catch the watermelon he was cutting, from rolling away, while the knife was still in the watermelon. At the ED her had sutures placed. He was referred by Manfred to Dr Pulido to evaluate concern for potential nerve injury and diminished sensation. Patient states he continues to have numbness in his small finger from his PIP to the tip. Allergies No Known Allergies Allergy (Verified 02/11/25 15:50) HPI HPI OV-RT small finger nerve-follow up: Details: Toney is a 54 year old right hand dominant man who presents for a right ring & small finger palmar laceration, with numbness, DOI: 01/12/25. This was sutured in ED. He says he is doing well overall in regards to his pain & swelling. He continues to have numbness to the DORSAL aspect of the small finger, and normal sensation to the VOLAR aspect. He has normal sensation to his other digits. 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 [facility] Social History Alcohol intake: current Alcohol intake frequency: a few times a month Patient Tobacco Use Status: Never used Tobacco service: Yes Current occupational status: employed Current occupation: [employer] All systems reviewed & are unremarkable except as noted in HPI and below Physical Exam Vital Signs: BMI result Body Mass Index 30.5 Const General: cooperative, healthy appearing and no acute distress Orientation/consciousness: patient oriented x3 HEENT Head: Yes normocephalic and Yes atraumatic Eyes EOM: EOMs intact bilaterally Resp Effort & Inspection: normal respiratory effort and able to speak in complete sentences Cardio Jugular venous distension: no JVD Skin General skin exam: turgor normal Rashes: no rashes Neuro General: patient oriented x3 Extrem Other: Evaluation of Right Upper Extremity: The patient is alert, oriented, and in no acute distress Neuro: Median, Ulnar, Radial nerves motor and sensory intact and sensation in the median nerve distribution & ring finger. Normal sensation tot he radial digital nerve distribution of the small finger. Decreased sensation tot he ulnar digital nerve of the small finger. Decreased sensation to the dorsal radial & ulnar aspects of the small finger, from the PIP joint distally Vascular: Cap refill brisk ROM: He can make a fist and extend all his digits Good FDP & FDS tendon function of the small finger, however hwne making a fist he would only flex his small finger at the MCP joint With encouragement he could bring his small finger closed to a fist, and then had good active flexion of the small finger joints Skin: No lacerations or abrasions. General: No Ecchymosis. No Erythema or evidence of infection. Healed lacerations at the PIP flexion creases of the ring & small fingers Psych Appearance: grossly normal Affect: normal affect Attitude: cooperative Assessment & Plan Assessment & Plan (1) Traumatic injury of digital nerve of right little finger: Code(s): S64.496A - Injury of digital nerve of right little finger, initial encounter Category: Medical (2) Laceration of finger of right hand: Code(s): S61.219A - Laceration without foreign body of unspecified finger without damage to nail, initial encounter Category: Medical Qualifiers: Damage to nail status: without damage Encounter type: initial encounter Finger: ring finger Foreign body presence: without foreign body Qualified Code(s): S61.214A - Laceration without foreign body of right ring finger without damage to nail, initial encounter (3) Stiffness of finger joint of right hand: Code(s): M25.641 - Stiffness of right hand, not elsewhere classified Category: Medical Plan Assessment & Plan: 1. Right small finger ulnar digital nerve laceration 2. Right palmar laceration PIP flexion crease of the ring & small fingers DOI: 01/12/25 Sutured in ED 3. Right small finger stiffness Secondary to disuse following injury I educated him about these conditions I discussed operative and non-operative treatment options No operative treatment indicated at this time, given the length of time since his DOI, and he expressed understanding. I discussed activity modification, he is to perform gentle ROM exercises at home, 20x daily He may benefit from OT hand therapy in the future He can follow up prn. He may contact the clinic for a referral to OT hand therapy Scribed for Yamileth Pulido MD by Jose D Fuller medical coding auditor, on 02/11/25 at 4:00 PM, EST. Coding Level of Care Code Est Pt Level 3 (93406) Diagnoses Traumatic injury of digital nerve of right little finger S64.496A Laceration of finger of right hand S61.214A Damage to nail status: without damage Encounter type: initial encounter Finger: ring finger Foreign body presence: without foreign body Stiffness of finger joint of right hand M25.641
== END 2025-02-11 16:14 | disposition home or self-care (01) ==
LOC: HO.HOS 15:36
PROVIDERS: Visit Provider Orthopaedic Surgery
DX: S64.496A Injury of digital nerve of right little finger, initial encounter (principal); S61.214A Laceration without foreign body of right ring finger without damage to nail, initial encounter; M25.641 Stiffness of right hand, not elsewhere classified
CPT/HCPCS: 99213

== ENCOUNTER → 2025-02-11 15:36 | Outpatient (BNVA) | payer OTHER, BC, SELFPAY | PROVIDERS: Visit Provider Orthopaedic Surgery | DX: S64.496D Injury of digital nerve of right little finger, subsequent encounter (principal); S61.214D Laceration without foreign body of right ring finger without damage to nail, subsequent encounter; M25.641 Stiffness of right hand, not elsewhere classified | CPT/HCPCS: 99212 ==